=== PATIENT | female | born 1950 | race African-American/Black ===

== ENCOUNTER 2018-05-23 05:34 | Inpatient (IN) ==
[2018-05-23] MEDS ORDERED: ceFAZolin 1,000 MG in SYRINGE 1 EACH IV ONE (06:00)
[2018-05-23] MEDS ORDERED: FAMOTIDINE 20 MG TABLET PO ONE (06:00)
[2018-05-23] MEDS ORDERED: VANCOMYCIN INJ 1,000 MG in SODIUM CHLORIDE 0.9% 250 ML IV ONE (06:00)
[2018-05-23] MEDS ORDERED: ceFAZolin 1,000 MG VIAL ONE (06:01)
[2018-05-23] MEDS ORDERED: VANCOMYCIN 1,000 MG VIAL ONE (06:01)
[2018-05-23] MEDS ORDERED: TRANEXAMIC ACID 1,000 MG/10 ML VIAL ONE (06:26)
[2018-05-23] MEDS: LACTATED RINGERS 1,000 ML IV SCH ×2 (06:29→12:07)
[2018-05-23] MEDS ORDERED: FAMOTIDINE 20 MG TABLET ONE (06:31)
[2018-05-23] MEDS ORDERED: BUPIVACAINE SPINAL 0.75% 2 ML AMP SPINAL ONE (06:38)
[2018-05-23] MEDS ORDERED: ROPIVACAINE 0.5% 30 ML VIAL ONE (06:39)
[2018-05-23] MEDS ORDERED: MAGNESIUM HYDROXIDE SUSP 30 ML UDCUP PO PRN (07:09)
[2018-05-23] MEDS ORDERED: BISACODYL 10 MG SUPP RECTAL PRN (07:09)
[2018-05-23] MEDS ORDERED: TEMAZEPAM 7.5 MG CAPSULE PO PRN (07:09)
[2018-05-23] MEDS ORDERED: LACTULOSE 20 GM/30 ML UDCUP PO PRN (07:09)
[2018-05-23] MEDS ORDERED: diphenhydrAMINE CAP 25 MG CAPSULE PO PRN (07:09)
[2018-05-23] MEDS ORDERED: ONDANSETRON 4 MG/2 ML VIAL IV PRN ×2 (07:09→10:01)
[2018-05-23] MEDS ORDERED: PROMETHAZINE 25 MG/1 ML VIAL IM PRN (07:09)
[2018-05-23] MEDS ORDERED: MORPHINE 4 MG/1 ML VIAL IV PRN (07:09)
[2018-05-23] MEDS ORDERED: NALOXONE 0.4 MG/ML VIAL IV PRN (07:09)
[2018-05-23] MEDS ORDERED: NAPROXEN 500 MG TABLET PO PRN (07:12)
[2018-05-23] MEDS ORDERED: GABAPENTIN 300 MG CAPSULE PO PRN (07:12)
[2018-05-23] MEDS: DOCUSATE SODIUM 100 MG CAPSULE PO SCH ×2 (09:00→21:59)
[2018-05-23] MEDS ORDERED: PROPOFOL 200 MG/20 ML VIAL IV ONE (09:48)
[2018-05-23] MEDS ORDERED: fentaNYL 100 MCG/2 ML VIAL ONE (09:48)
[2018-05-23] MEDS ORDERED: SEVOFLURANE 1 UNIT/15 MINUTE INH ONE (09:48)
[2018-05-23] MEDS ORDERED: PHENYLEPHRINE 1 MG/10 ML SYRINGE IV ONE (09:49)
[2018-05-23] MEDS ORDERED: GLYCOPYRROLATE 0.4 MG/2 ML VIAL ONE (09:49)
[2018-05-23] MEDS ORDERED: ROCURONIUM 100 MG/10 ML VIAL IV ONE (09:49)
[2018-05-23] MEDS ORDERED: NEOSTIGMINE 10 MG/10 ML VIAL ONE (09:49)
[2018-05-23] MEDS ORDERED: ONDANSETRON 4 MG/2 ML VIAL ONE (09:49)
[2018-05-23] MEDS ORDERED: LACTATED RINGERS 1,000 ML IV ONE (09:49)
[2018-05-23] MEDS ORDERED: DEXAMETHASONE 10 MG/1 ML VIAL ONE (09:49)
[2018-05-23] MEDS ORDERED: MIDAZOLAM 2 MG/2 ML VIAL ONE (09:49)
[2018-05-23] MEDS ORDERED: KETAMINE 500 MG/10 ML VIAL ONE (09:51)
[2018-05-23] MEDS ORDERED: HYDROmorphone 2 MG/1 ML VIAL IV PRN (10:01)
[2018-05-23] MEDS ORDERED: MORPHINE PCA 30 MG/30 ML SYRINGE IV ONE (10:08)
[2018-05-23] MEDS: MORPHINE PCA 30 MG/30 ML SYRINGE IV SCH (10:14)
[2018-05-23] MEDS: FUROSEMIDE 20 MG TABLET PO SCH (15:00)
[2018-05-23] MEDS: CYANOCOBALAMIN 500 MCG TABLET PO SCH (15:01)
[2018-05-23] MEDS: CHOLECALCIFEROL 1,000 UNIT TABLET PO SCH (15:01)
[2018-05-23] MEDS: ASCORBIC ACID 500 MG TABLET PO SCH (15:01)
[2018-05-23] MEDS: ceFAZolin 1,000 MG in SYRINGE 1 EACH IV SCH ×2 (15:04→22:00)
[2018-05-24 05:36] LABS: Basophils % 0.2 % (0.0-0.8); Eosinophils % 0.1 % (0.00-10.9); Hematocrit 33.5 VOL% (35.7-47.0); Hemoglobin 10.7 GM/DL (12.0-16.0); Immature Granulocytes % 0.1 %; Immature Granulocytes Absolute 0.01 #; Lymphocytes # 1.6 10*3/uL (1.4-4.0); Lymphocytes % 17.6 % (21.3-54.2); Mean Corpuscular HGB Conc 31.9 GM/DL (32-36); Mean Corpuscular Hemoglobin 29 PG (27-34); Mean Corpuscular Volume 89.1 FL (87-102); Mean Platelet Volume 10.8 FL (9.6-12.0); Monocytes # 0.8 10*3/uL (0.11-0.8); Monocytes % 8.6 % (1.7-12.7); Neutrophils # 6.5 10*3/uL (1.4-7.4); Neutrophils % 73.4 % (38.7-73.9); Platelet Count 168 T/CUMM (130-400); Red Blood Count 3.76 MC/CUMM (3.8-5.5); Red Cell Distribution Width 13.7 % (9.3-17.3); White Blood Count 8.9 T/CUMM (4-12)
[2018-05-24 05:50] LABS: Calcium 8.3 MG/DL (8.5-10.1); Osmolality,Calculated 273.8 MOS/KG (273-304); Potassium 3.4 MMOL/L (3.5-5.1)
[2018-05-24] MEDS: MORPHINE PCA 30 MG/30 ML SYRINGE IV SCH (07:30)
[2018-05-24] MEDS: LACTATED RINGERS 1,000 ML IV SCH (09:01)
[2018-05-24] MEDS: DOCUSATE SODIUM 100 MG CAPSULE PO SCH ×2 (09:02→20:58)
[2018-05-24] MEDS: FUROSEMIDE 20 MG TABLET PO SCH (09:03)
[2018-05-24] MEDS: ASCORBIC ACID 500 MG TABLET PO SCH (09:04)
[2018-05-24] MEDS: CYANOCOBALAMIN 500 MCG TABLET PO SCH (09:04)
[2018-05-24] MEDS: CHOLECALCIFEROL 1,000 UNIT TABLET PO SCH (09:04)
[2018-05-24] MEDS: FONDAPARINUX 2.5 MG/0.5 ML SYRINGE SUBCUT SCH (20:58)
[2018-05-25] MEDS: LACTATED RINGERS 1,000 ML IV SCH (04:25)
[2018-05-25 06:23] LABS: Basophils # 0.1 10*3/uL (0.0-0.2); Basophils % 0.5 % (0.0-0.8); Eosinophils # 0.1 10*3/uL (0.0-0.87); Eosinophils % 1.3 % (0.00-10.9); Hematocrit 33.7 VOL% (35.7-47.0); Hemoglobin 10.8 GM/DL (12.0-16.0); Immature Granulocytes % 0.3 %; Immature Granulocytes Absolute 0.03 #; Lymphocytes % 18.9 % (21.3-54.2); Mean Corpuscular Hemoglobin 29 PG (27-34); Mean Corpuscular Volume 89.4 FL (87-102); Monocytes % 9.3 % (1.7-12.7); Neutrophils # 7.2 10*3/uL (1.4-7.4); Neutrophils % 69.7 % (38.7-73.9); Platelet Count 153 T/CUMM (130-400); Red Blood Count 3.77 MC/CUMM (3.8-5.5); Red Cell Distribution Width 14.1 % (9.3-17.3); White Blood Count 10.3 T/CUMM (4-12)
[2018-05-25] MEDS: FUROSEMIDE 20 MG TABLET PO SCH (09:07)
[2018-05-25] MEDS: DOCUSATE SODIUM 100 MG CAPSULE PO SCH ×2 (09:07→21:02)
[2018-05-25] MEDS: CYANOCOBALAMIN 500 MCG TABLET PO SCH (09:07)
[2018-05-25] MEDS: ASCORBIC ACID 500 MG TABLET PO SCH (09:07)
[2018-05-25] MEDS: CHOLECALCIFEROL 1,000 UNIT TABLET PO SCH (09:07)
[2018-05-25] MEDS: FONDAPARINUX 2.5 MG/0.5 ML SYRINGE SUBCUT SCH (21:02)
[2018-05-26] MEDS: DOCUSATE SODIUM 100 MG CAPSULE PO SCH (08:45)
[2018-05-26] MEDS: CHOLECALCIFEROL 1,000 UNIT TABLET PO SCH (08:45)
[2018-05-26] MEDS: FUROSEMIDE 20 MG TABLET PO SCH (08:45)
[2018-05-26] MEDS: CYANOCOBALAMIN 500 MCG TABLET PO SCH (08:45)
[2018-05-26] MEDS: ASCORBIC ACID 500 MG TABLET PO SCH (08:46)
[2018-05-26 12:08] VITALS: BP 144/79
== END 2018-05-26 12:29 | disposition home health service (06) | DRG 468 ==
LOC: N.OR 05:34 → N.SDSINP 05:35 → N.3E 10:11
PROVIDERS: ADMIT Orthopaedic Surgery; ATTEND Orthopaedic Surgery